=== PATIENT | female | born 2000 | race Two or more races ===

== ENCOUNTER 2023-03-14 20:12 | Emergency (ER) | payer MEDICAID, OTHER ==
[~2023-03-14] VITALS: Ht 160 cm; Wt 40.0 kg
[2023-03-14 20:54] VITALS: BP 127/79
== END 2023-03-14 21:35 | disposition left against medical advice (07) ==
LOC: ER 20:12 → EDBD 20:12 → ER 21:35
DX: F41.9 Anxiety disorder, unspecified (principal); Z53.21 Procedure and treatment not carried out due to patient leaving prior to being seen by health care provider